=== PATIENT | male | born 1995 | race Caucasian/White ===

== ENCOUNTER → 2017-11-30 | Outpatient (REF) | payer MEDICAID ==
[2017-11-30 16:28] LABS: INTERNAL CONTROL NO RESULT
[2017-11-30 17:04] LABS: INFLUENZA A AMPLIFICATION NEGATIVE (NEGATIVE); INFLUENZA B AMPLIFICATION NEGATIVE (NEGATIVE)
== END ==
LOC: M LAB REF 16:22
DX: J11.1 Influenza due to unidentified influenza virus with other respiratory manifestations (principal)

== ENCOUNTER → 2017-12-28 | Outpatient (REF) | payer OTHER | LOC: M LAB REF 16:46 | DX: J02.9 Acute pharyngitis, unspecified (principal) ==

== ENCOUNTER 2018-03-27 21:38 | Emergency (ER) | payer OTHER ==
[2018-03-28] MEDS: methylPREDNISolone INJ 125 MG/2 ML VIAL (J2930) IV (00:08)
[2018-03-28] MEDS: FAMOTIDINE INJ 20MG/2ML VIAL (S0028) IVP (00:08)
[2018-03-28] MEDS: diphenhydrAMINE 50 MG CAP PO (01:15)
== END 2018-03-28 01:28 | disposition home or self-care (01) ==
LOC: M ED 03-28 01:28
DX: L50.0 Allergic urticaria (principal); T78.40XA Allergy, unspecified, initial encounter; X58.XXXA Exposure to other specified factors, initial encounter; Y92.89 Other specified places as the place of occurrence of the external cause; Z88.0 Allergy status to penicillin; Z87.891 Personal history of nicotine dependence
CPT/HCPCS: J2930

== ENCOUNTER 2019-05-19 17:36 | Emergency (ER) | payer OTHER, SELFPAY ==
[~2019-05-19] VITALS: Ht 175.3 cm; Wt 66.2 kg
[2019-05-19 17:36] VITALS: BP 138/72
[~2019-05-19 17:36] MED LIST: PRED20TA PO
[2019-05-19] MEDS ORDERED: HYDR-3363 PO (18:36)
[2019-05-19] MEDS ORDERED: PRED20TA PO (18:36)
[2019-05-19] MEDS ORDERED: predniSONE 20 MG TAB PO ONE (18:45)
== END 2019-05-19 18:53 | disposition home or self-care (01) ==
LOC: M ED 17:36
DX: L50.1 Idiopathic urticaria (principal); Z88.0 Allergy status to penicillin

== ENCOUNTER 2020-11-14 08:59 | Emergency (ER) | payer OTHER, SELFPAY ==
[~2020-11-14] VITALS: Ht 175.3 cm; Wt 65.3 kg
[~2020-11-14 08:59] MED LIST changes: +HYDR-3363 PO
[2020-11-14] MEDS ORDERED: ACET-897 PO (09:10)
[2020-11-14] MEDS ORDERED: BENZOCAINE 20% GEL 9GM TUBE (ANBESOL MAX STRENGTH) TOP ONE (09:55)
[2020-11-14] MEDS ORDERED: NORCO, ANEXSIA 5/325MG TABLET (HYDROcodone/ACETAMINOPHEN) PO ONE (09:55)
[2020-11-14] MEDS ORDERED: IBUP80TA PO (10:18)
[2020-11-14] MEDS ORDERED: CLIN150C15 PO (10:18)
[2020-11-14] MEDS ORDERED: HYDR-3713 PO (10:18)
[2020-11-14 10:47] VITALS: BP 132/85
== END 2020-11-14 10:51 | disposition home or self-care (01) ==
LOC: M ED 08:59
DX: K65.9 Peritonitis, unspecified (principal); K02.9 Dental caries, unspecified; R68.84 Jaw pain; Z88.0 Allergy status to penicillin

== ENCOUNTER → 2021-01-29 | Outpatient (CLI) | payer SELFPAY ==
[~2021-01-29] MED LIST changes: +ACET-897 PO; +CLIN150C15 PO; +HYDR-3713 PO; +IBUP80TA PO
== END ==
LOC: M OUTALCOH 07:37
PROVIDERS: ATTEND Psychiatry & Neurology Psychiatry
DX: Z03.89 Encounter for observation for other suspected diseases and conditions ruled out (principal)

== ENCOUNTER 2021-02-05 15:32 | Outpatient (RCR) | payer SELFPAY | END 2021-02-10 | LOC: M OUTALCOH 15:32 | PROVIDERS: ATTEND Psychiatry & Neurology Psychiatry | DX: Z03.89 Encounter for observation for other suspected diseases and conditions ruled out (principal); Z72.0 Tobacco use ==

== ENCOUNTER 2022-02-16 19:57 | Emergency (ER) | payer SELFPAY ==
[~2022-02-16] VITALS: Ht 175.3 cm; Wt 63.6 kg
[~2022-02-16 19:57] MED LIST changes: -CLIN150C15 PO; +CLIN150C17 PO
[2022-02-16 20:40] VITALS: BP 124/70
[2022-02-17] MEDS ORDERED: BOOSTRIX/ADACEL VACCINE (DIPHTH/PERTUSS/ACELL/TETANUS) 0.5ML SYR IM ONE (00:30)
[2022-02-17] MEDS ORDERED: BACITRACIN OINTMENT 30GM TUBE TOP ONE (00:45)
[2022-02-17] MEDS ORDERED: CEPHALEXIN 500 MG CAP PO ONE (00:45)
[2022-02-17] MEDS ORDERED: CEPH500C PO (01:04)
== END 2022-02-17 01:26 | disposition home or self-care (01) ==
LOC: M ED 19:57
DX: S61.306A Unspecified open wound of right little finger with damage to nail, initial encounter (principal); W23.1XXA Caught, crushed, jammed, or pinched between stationary objects, initial encounter; Z88.0 Allergy status to penicillin; Y92.9 Unspecified place or not applicable; Y93.9 Activity, unspecified; Y99.0 Civilian activity done for income or pay